=== PATIENT | female | born 2000 | race Caucasian/White ===

== ENCOUNTER 2022-01-15 22:47 | Emergency (ER) | payer OTHER | END 2022-01-15 23:54 | disposition home or self-care (01) | LOC: FER 22:47 | DX: S61.012A Laceration without foreign body of left thumb without damage to nail, initial encounter (principal); F17.290 Nicotine dependence, other tobacco product, uncomplicated; Z23 Encounter for immunization; Z88.2 Allergy status to sulfonamides; W26.0XXA Contact with knife, initial encounter; Y92.009 Unspecified place in unspecified non-institutional (private) residence as the place of occurrence of the external cause; Z28.311 Partially vaccinated for COVID-19 | CPT/HCPCS: 90471; 90715; J2001 ==